=== PATIENT | female | born 1950 | race African-American/Black ===

== ENCOUNTER 2020-02-29 16:34 | Inpatient (IN) ==
[2020-02-29] MEDS ORDERED: LR 1000 ML IV 1,000 ML IV ONE ×2 (16:49→17:20)
[2020-02-29 17:18] LABS: ABG BASE EXCESS -0.5 mmol/L (-2.0-2.0); ABG HCO3 21.2 mmol/L (22-26)
--- NOTE | 2020-02-29 17:18 | DR.SOBA ---
HPI Time Seen Time Seen by Provider: 02/29/20 16:49 Primary Care Physician Primary Care Physician: margoth rogers HPI Comment HPI Comment: Cough, mild SHOB, fever at home x 3-4 days assoc w/appetite loss. Was at [facility] 4 days ago for 1 week constipation, was given stool softener and K+ replacement, has had daily bowel movements since. No chest pain, LOC, n/v, or any other associated symptom. Complaints Chief Complaint:: pt was brought to the er via family per patients fernando rodriguez. family stated she has been couging, running fever and short of breath. patient stated she has had problems having a bowel movement in the past Source History Provided: Patient Mode of Arrival Mode of Arrival: Wheelchair Timing Onset of Chief Complaint: 02/25/20 PMH PMH Past Medical History: Yes Past Medical History: Diabetes and Hypertension Past Surgical History: Yes Surgical History: Unknown Family History History of Family Medical Conditions: No Social History Does patient currently use any type of tobacco product: No Have you used tobacco products in the last 12 months: No Type of Tobacco Use: None Does any household member use tobacco: No Alcohol Use: None Do you use any recreational Drugs:: No Lives With: Family Lives Where: Home Infectious screening In the last 2 months have you had wt loss of >10#?: NO Have you had fever, night sweats or hemotysis?: No Have you traveled outside the country in the last 6 months?: No Isolation: Standard ROS Review of Systems Constitutional: See HPI Eyes: No Symptoms Reported ENTM: No Symptoms Reported Respiratoy: See HPI Cardiovascular: No Symptoms Reported Gastrointestinal/Abdominal: See HPI Genitourinary: No Symptoms Reported Neurological: No Symptoms Reported Musculoskeletal: No Symptoms Reported Integumentary: No Symptoms Reported Hematologic/Lymphatic: No Symptoms Reported Endocrine: No Symptoms Reported Psychiatric: No Symptoms Reported All Other Systems: Reviewed and Negative PE Vital Signs Vitals: Temperature 99.1 F Pulse Rate [Left] 101 Pulse Rate 111 Respiratory Rate 18 Blood Pressure [Left Arm] 137/71 Blood Pressure 154/76 O2 Sat by Pulse Oximetry 95 General Limitations: No Limitations General Appearance: Alert, In No Apparent Distress and Obese Head Head Exam: Normal Inspection Eyes Eye exam: Normal Appearance ENT ENT Exam: Normal Exam and Mucous Membranes Dry Neck Neck Exam: Normal Inspection Chest Chest Inspection: Normal Inspection and Symmetric Chest Wall Rise Respiratory Respiratory Exam: Normal Lung Sounds Bilat and Other (mild tachypnea) Respiratory Exam: Bilateral: Clear to Auscultation Cardiovascular Cardiovascular Exam: Regular Rate, Normal Rhythm and Tachycardia Abdominal Exam Abdominal Exam: Normal Inspection, Normal Bowel Sounds and Soft; negative Distention, Tenderness, Guarding, Rebound and Rigidity Extremities Extremities Exam: Normal Inspection Back Back Exam: Normal Inspection Neurologic Neurological Exam: Alert and Oriented X3 Psychiatric Psychiatric Exam: Normal Affect and Normal Mood Skin Skin Exam: Warm, Dry, Intact and Normal Color COURSE Treatment Treatment: ABG concerning for Type 1 respiratory failure. No recent travel or immobilization or hospitalization. CXR concerning for bibasilar infiltrates, which along with leukocytosis concerning for bacterial pneumonia. Covid test pending. Discussed case with Dr. Velasco admitted for IV abx, respiratory monitoring and support. Reevaluation 1st: Improved ROR Labs Reviewed Laboratory Results Reviewed?: Yes Result Diagrams: 02/29/20 17:50 02/29/20 17:50 Laboratory: WBC 18.0 X10^3/uL (3.6-10.0) H 02/29/20 17:50 RBC 5.07 X10^6/uL (3.5-5.4) 02/29/20 17:50 Hgb 10.7 g/dL (12.0-16.0) L 02/29/20 17:50 Hct 34.8 % (36.0-47.0) L 02/29/20 17:50 MCV 68.6 fL (80.0-100.0) L 02/29/20 17:50 MCH 21.0 pg (27.0-34.0) L 02/29/20 17:50 MCHC 30.6 g/dL (33.0-35.0) L 02/29/20 17:50 RDW 16.8 % (11.6-16.5) H 02/29/20 17:50 Plt Count 492 X10^3/uL (150.0-450.0) H 02/29/20 17:50 Plt Count Comment Increased (ADEQUATE) A 02/29/20 17:50 MPV 7.8 fL (7.4-11.0) 02/29/20 17:50 Neut % (Auto) 78.7 % (42.0-75.0) H 02/29/20 17:50 Lymph % (Auto) 13.0 % (21.0-51.0) L 02/29/20 17:50 Kleberg % (Auto) 7.0 % (0.0-13.0) 02/29/20 17:50 Eos % (Auto) 0.1 % (0.9-2.9) L 02/29/20 17:50 Baso % (Auto) 1.2 % (0.2-1.0) H 02/29/20 17:50 Neut # (Auto) 14.1 x10^3/uL (2.2-4.8) H 02/29/20 17:50 Lymph # (Auto) 2.3 X10^3/uL (1.3-2.9) 02/29/20 17:50 Kleberg # (Auto) 1.3 x10^3/uL (0.3-0.8) H 02/29/20 17:50 Eos # (Auto) 0.0 x10^3/uL (0.0-0.2) 02/29/20 17:50 Baso # (Auto) 0.2 X10^3/uL (0.0-0.1) H 02/29/20 17:50 Absolute Nucleated RBC 0.3 /100WBC 02/29/20 17:50 Plt Morphology Comment Normal (NORMAL) 02/29/20 17:50 RBC Morphology Abnormal (NORMAL) A 02/29/20 17:50 Hypochromasia 2+ A 02/29/20 17:50 Anisocytosis Slight A 02/29/20 17:50 Microcytosis 1+ A 02/29/20 17:50 Ovalocytes Present 02/29/20 17:50 Vicente Cells Present 02/29/20 17:50 Sample Site Rbra 02/29/20 17:08 ABG pH 7.520 (7.35-7.45) H 02/29/20 17:08 ABG pCO2 26.0 mmHg (35.0-45.0) L 02/29/20 17:08 ABG pO2 37.0 mmHg (80.0-100.0) L* 02/29/20 17:08 ABG HCO3 21.2 mmol/L (22-26) L 02/29/20 17:08 ABG O2 Saturation 78.0 % (90-100) L* 02/29/20 17:08 ABG Base Excess -0.5 mmol/L (-2.0-2.0) 02/29/20 17:08 Yonatan Test N/a 02/29/20 17:08 A-a Gradient 80.0 mmHg 02/29/20 17:08 FiO2 21.0 02/29/20 17:08 Blood Gas Comments Pt trudi well elj cdn 02/29/20 17:08 Sodium 126 mmol/L (136-145) L 02/29/20 17:50 Corrected Sodium 135 mmol/L (136-145) L 02/29/20 17:50 Potassium 3.9 mmol/L (3.5-5.1) 02/29/20 17:50 Chloride 90 mmol/L (98-107) L 02/29/20 17:50 Carbon Dioxide 22.7 mmol/L (21-32) 02/29/20 17:50 BUN 32 mg/dL (7-18) H 02/29/20 17:50 Creatinine 1.42 mg/dL (0.55-1.02) H 02/29/20 17:50 Est GFR (MDRD) Af Amer 47 (>60) L 02/29/20 17:50 Est GFR (MDRD) Non-Af 39 (>60) L 02/29/20 17:50 Glucose 487 mg/dL (65-99) H 02/29/20 17:50 Calcium 8.4 mg/dL (8.5-10.1) L 02/29/20 17:50 Corrected Calcium 9.5 mg/dL (8.5-10.1) 02/29/20 17:50 Magnesium 2.1 mg/dL (1.7-2.9) 02/29/20 17:50 Total Bilirubin 0.80 mg/dL (0.2-1.0) 02/29/20 17:50 AST 34 Units/L (15-37) 02/29/20 17:50 ALT 14 Units/L (12-78) 02/29/20 17:50 Alkaline Phosphatase 112 Units/L (46-116) 02/29/20 17:50 Creatine Kinase 101 Units/L (26-192) 02/29/20 17:50 CK-MB (CK-2) 1.2 ng/mL (0-4.0) 02/29/20 17:50 CK/CKMB % Calc 1.2 % (<4) 02/29/20 17:50 Troponin I 0.05 ng/mL (0-1.5) 02/29/20 17:50 Total Protein 7.7 g/dL (6.4-8.2) 02/29/20 17:50 Albumin 2.6 g/dL (3.4-5.0) L 02/29/20 17:50 Globulin 5.1 g/dL (2.5-4.5) H 02/29/20 17:50 Albumin/Globulin Ratio 0.5 Ratio (1.1-2.1) L 02/29/20 17:50 Influenza Type A Ag Negative-presumptive (NEGATIVE) 02/29/20 17:18 Influenza Type B Ag Negative-presumptive (NEGATIVE) 02/29/20 17:18 S. pyogenes (TEM-PCR) Not detected (NOT DETECT) 02/29/20 17:18 Miscellaneous Test Cancelled 02/29/20 17:18 XRAY XRAY Interpreted by: Radiologist and Self X-ray Results: Bibasilar PNM EKG Rate: 106 Alden: Normal Rhythm: NSR Block: None Hypertrophy: LAE ST: Normal Opioid Opioid Risk Tool Total: 0 Total Score Risk Category: Low Risk Copyright: Prakash NORRIS predicting aberrant behaviors Diagnosis Discharge Problem: Community acquired bilateral lower lobe pneumonia, Acute type 1 respiratory failure Instructions Forms: Excuse From Work Precautions for COVID19 Patient Portal Social Distancing
--- NOTE | 2020-02-29 17:49 | RAD ---
HISTORYCOUGH, FEVERSTUDYCHEST, 1 VIEWCOMPARISONNone availableFINDINGSThe trachea is midline. The cardiac silhouette is unremarkable . The lungs demonstrate hazy opacities in the lower lobes bilaterally which may be due pneumonia the bony thorax is unremarkable.IMPRESSIONHazy bibasilar opacities suggesting underlying pneumonia. Follow-up two view chest would be of benefit.Electronically signed by: ELAYNE PERDUE (Feb 29, 2020 17:48:12)
[2020-02-29 18:00] LABS: BASOPHILS # (AUTO) 0.2 X10^3/uL (0.0-0.1); BASOPHILS % (AUTO) 1.2 % (0.2-1.0); EOSINOPHILS % (AUTO) 0.1 % (0.9-2.9); HEMATOCRIT 34.8 % (36.0-47.0); HEMOGLOBIN 10.7 g/dL (12.0-16.0); LYMPHOCYTES # (AUTO) 2.3 X10^3/uL (1.3-2.9); MEAN CORPUSCULAR HGB CONC 30.6 g/dL (33.0-35.0); MEAN CORPUSCULAR VOLUME 68.6 fL (80.0-100.0); MEAN PLATELET VOLUME 7.8 fL (7.4-11.0); MONOCYTES # (AUTO) 1.3 x10^3/uL (0.3-0.8); NEUTROPHILS # (AUTO) 14.1 x10^3/uL (2.2-4.8); NEUTROPHILS % (AUTO) 78.7 % (42.0-75.0); PLATELET COUNT 492 X10^3/uL (150.0-450.0); RED BLOOD COUNT 5.07 X10^6/uL (3.5-5.4); RED CELL DISTRIBUTION WIDTH 16.8 % (11.6-16.5)
[2020-02-29 18:11] LABS: CALCIUM 8.4 mg/dL (8.5-10.1); CARBON DIOXIDE 22.7 mmol/L (21-32); CREATININE 1.42 mg/dL (0.55-1.02)
[2020-02-29 18:15] LABS: ALBUMIN 2.6 g/dL (3.4-5.0); COR CA(FOR HYPOALB) 9.5 mg/dL (8.5-10.1); MAGNESIUM 2.1 mg/dL (1.7-2.9); TOTAL PROTEIN 7.7 g/dL (6.4-8.2)
[2020-02-29 18:27] LABS: HYPOCHROMASIA 2+; MICROCYTOSIS 1+; PLATELET MORPHOLOGY COMMENT NORMAL (NORMAL)
[2020-02-29 18:28] LABS: CKMB % 1.2 % (<4); CREATINE KINASE MB 1.2 ng/mL (0-4.0); TROPONIN I 0.05 ng/mL (0-1.5)
[2020-02-29 18:31] LABS: BURR CELLS PRESENT; OVALOCYTES PRESENT
[2020-02-29 18:32] LABS: ANISOCYTOSIS SLIGHT
[2020-02-29] MEDS ORDERED: VIBRAMYCIN PO ONE (19:35)
[2020-02-29] MEDS ORDERED: ROCEPHIN VIAL 2 GRAMS ONE (19:36)
[2020-02-29] MEDS ORDERED: NS 100 ML IV + SPIKE MINIBAG* 100 ML IV ONE (19:36)
[2020-02-29] MEDS: ROCEPHIN VIAL 2 GRAMS 2 G in NS 100 ML IV + SPIKE MINIBAG* 100 ML IV SCH (19:45)
[2020-02-29] MEDS: VIBRAMYCIN PO SCH (19:45)
[2020-02-29] MEDS: LIPITOR TAB 40 MG PO SCH (23:49)
[2020-02-29] MEDS: HumuLIN R SC PRN (23:50)
[2020-03-01 02:38] LABS: BILIRUBIN,URINE NEGATIVE (NEGATIVE); BLOOD/HEMOGLOBIN,URINE NEGATIVE (NEGATIVE); GLUCOSE, URINE 4+ (NEGATIVE); KETONES,URINE 2+ (NEGATIVE); LEUKOCYTE ESTERASE ,URINE NEGATIVE (NEGATIVE); NITRITES,URINE NEGATIVE (NEGATIVE); PROTEIN,URINE 3+ (NEGATIVE); UROBILINOGEN,URINE 1+ (NORMAL)
[2020-03-01 02:42] LABS: APPEARANCE,URINE CLEAR (CLEAR); COLOR,URINE YELLOW (YELLOW)
[2020-03-01 02:43] LABS: BACTERIA,URINE NEGATIVE /HPF (NEGATIVE); RBC,URINE NONE SEEN /HPF (0-3); SQUAMOUS EPITHELIAL CELL,UR RARE /HPF (NEGATIVE)
[2020-03-01 05:08] LABS: ABG ALLEN TEST POS; ABG HCO3 30.4 mmol/L (22-26)
[2020-03-01 05:31] LABS: BASOPHILS # (AUTO) 0.1 X10^3/uL (0.0-0.1); BASOPHILS % (AUTO) 0.6 % (0.2-1.0); EOSINOPHILS # (AUTO) 0.1 x10^3/uL (0.0-0.2); EOSINOPHILS % (AUTO) 0.4 % (0.9-2.9); HEMATOCRIT 31.3 % (36.0-47.0); HEMOGLOBIN 9.7 g/dL (12.0-16.0); LYMPHOCYTES # (AUTO) 2.5 X10^3/uL (1.3-2.9); LYMPHOCYTES % (AUTO) 16.3 % (21.0-51.0); MEAN CORPUSCULAR HEMOGLOBIN 20.9 pg (27.0-34.0); MEAN CORPUSCULAR VOLUME 67.4 fL (80.0-100.0); MEAN PLATELET VOLUME 7.4 fL (7.4-11.0); MONOCYTES # (AUTO) 1.2 x10^3/uL (0.3-0.8); MONOCYTES % (AUTO) 8.2 % (0.0-13.0); NEUTROPHILS # (AUTO) 11.3 x10^3/uL (2.2-4.8); NEUTROPHILS % (AUTO) 74.5 % (42.0-75.0); PLATELET COUNT 401 X10^3/uL (150.0-450.0); RED BLOOD COUNT 4.64 X10^6/uL (3.5-5.4); RED CELL DISTRIBUTION WIDTH 16.3 % (11.6-16.5); WHITE BLOOD COUNT 15.2 X10^3/uL (3.6-10.0)
[2020-03-01 05:50] LABS: PLATELET MORPHOLOGY COMMENT NORMAL (NORMAL)
[2020-03-01 05:51] LABS: BURR CELLS PRESENT; HYPOCHROMASIA 2+; MICROCYTOSIS 1+; OVALOCYTES PRESENT
[2020-03-01 05:55] LABS: ALANINE AMINOTRANSFERASE 10 Units/L (12-78); ALBUMIN 2.2 g/dL (3.4-5.0); ALKALINE PHOSPHATASE 96 Units/L (46-116); ASPARTATE AMINO TRANSFERASE 30 Units/L (15-37); BLOOD UREA NITROGEN 18 mg/dL (7-18); CARBON DIOXIDE 26.9 mmol/L (21-32); CHLORIDE 93 mmol/L (98-107); COR CA(FOR HYPOALB) 9.4 mg/dL (8.5-10.1); COR NA(FOR HYPERGLY) 136 mmol/L (136-145); CREATININE 1.06 mg/dL (0.55-1.02); SODIUM 130 mmol/L (136-145); eGFR NON BLACK RACES 55 (>60)
[2020-03-01] MEDS: HumuLIN R SC PRN ×4 (06:04→21:35)
[2020-03-01] MEDS ORDERED: REMDESIVIR (INVESTIGATIONAL DRUG GS-5734) IV ONE (08:12)
[2020-03-01] MEDS ORDERED: ASCORBIC ACID INJ MULTI-DOSE VIAL IM SCH (08:15)
[2020-03-01] MEDS ORDERED: LOVENOX INJ 40 MG SYR SC SCH (09:00)
[2020-03-01] MEDS ORDERED: VITAMIN A PO SCH (09:00)
[2020-03-01] MEDS ORDERED: VITAMIN D (1.25MG) PO SCH (09:00)
[2020-03-01] MEDS: ZINC SULFATE PO SCH ×2 (09:21→21:30)
[2020-03-01] MEDS: ASPIRIN 81 MG CHEWTAB PO SCH (09:21)
[2020-03-01] MEDS: THIAMINE HCL INJ IM SCH ×2 (09:22→21:34)
[2020-03-01] MEDS: NORVASC TAB 10 MG PO SCH (09:22)
[2020-03-01] MEDS: VIBRAMYCIN PO SCH ×2 (09:23→21:30)
[2020-03-01] MEDS: LOVENOX INJ 30 MG SYR SC SCH ×2 (09:23→21:32)
[2020-03-01] MEDS: NS 1000 ML 1,000 ML IV SCH (09:24)
[2020-03-01] MEDS ORDERED: REMDESIVIR (INVESTIGATIONAL DRUG GS-5734) 200 MG in NS 250 ML IV 250 ML IV ONE (09:30)
[2020-03-01] MEDS: GLUCOPHAGE XR 24-HR PO SCH ×2 (09:51→21:30)
[2020-03-01] MEDS: DECADRON TAB PO SCH (09:52)
[2020-03-01] MEDS: ACTOS PO SCH (10:01)
[2020-03-01] MEDS ORDERED: TUSSIONEX PENNKINETIC SUSP ONE (11:48)
[2020-03-01] MEDS ORDERED: NS 100 ML IV 100 ML IV ONE ×3 (11:53→20:09)
[2020-03-01] MEDS: NS 100 ML IV 100 ML with ASCORBIC ACID INJ MULTI-DOSE VIAL 1,500 MG IV SCH ×6 (11:54→23:20)
[2020-03-01 12:36] VITALS: BMI 48.0
[2020-03-01] MEDS: K-DUR TAB 20 MEQ PO SCH (16:44)
[2020-03-01] MEDS ORDERED: XANAX PO ONE (18:25)
[2020-03-01] MEDS: ROCEPHIN VIAL 2 GRAMS 2 G in NS 100 ML IV + SPIKE MINIBAG* 100 ML IV SCH (21:28)
[2020-03-01] MEDS: LIPITOR TAB 40 MG PO SCH (21:30)
[2020-03-02] MEDS ORDERED: NS 100 ML IV 100 ML IV ONE ×4 (01:52→20:16)
[2020-03-02] MEDS: NS 100 ML IV 100 ML with ASCORBIC ACID INJ MULTI-DOSE VIAL 1,500 MG IV SCH ×8 (02:00→20:20)
[2020-03-02 05:25] LABS: ALANINE AMINOTRANSFERASE 11 Units/L (12-78); ALBUMIN 2.3 g/dL (3.4-5.0); ALKALINE PHOSPHATASE 93 Units/L (46-116); ASPARTATE AMINO TRANSFERASE 27 Units/L (15-37); BLOOD UREA NITROGEN 16 mg/dL (7-18); CALCIUM 7.9 mg/dL (8.5-10.1); CARBON DIOXIDE 23.8 mmol/L (21-32); CHLORIDE 96 mmol/L (98-107); COR CA(FOR HYPOALB) 9.3 mg/dL (8.5-10.1); COR NA(FOR HYPERGLY) 137 mmol/L (136-145); CREATININE 0.91 mg/dL (0.55-1.02); SODIUM 131 mmol/L (136-145); TOTAL PROTEIN 7.4 g/dL (6.4-8.2); eGFR NON BLACK RACES > 60 (>60)
[2020-03-02 05:27] LABS: BASOPHILS % (AUTO) 0.4 % (0.2-1.0); HEMATOCRIT 31.3 % (36.0-47.0); HEMOGLOBIN 9.7 g/dL (12.0-16.0); LYMPHOCYTES # (AUTO) 1.5 X10^3/uL (1.3-2.9); LYMPHOCYTES % (AUTO) 13.4 % (21.0-51.0); MEAN CORPUSCULAR HEMOGLOBIN 21.1 pg (27.0-34.0); MEAN CORPUSCULAR HGB CONC 30.9 g/dL (33.0-35.0); MEAN CORPUSCULAR VOLUME 68.2 fL (80.0-100.0); MONOCYTES # (AUTO) 1.4 x10^3/uL (0.3-0.8); MONOCYTES % (AUTO) 12.2 % (0.0-13.0); NEUTROPHILS # (AUTO) 8.2 x10^3/uL (2.2-4.8); PLATELET COUNT 385 X10^3/uL (150.0-450.0); RED BLOOD COUNT 4.58 X10^6/uL (3.5-5.4); RED CELL DISTRIBUTION WIDTH 16.7 % (11.6-16.5); WHITE BLOOD COUNT 11.1 X10^3/uL (3.6-10.0)
[2020-03-02 05:54] LABS: HYPOCHROMASIA 2+; PLATELET MORPHOLOGY COMMENT NORMAL (NORMAL)
[2020-03-02 05:55] LABS: ANISOCYTOSIS SLIGHT; BURR CELLS PRESENT; MICROCYTOSIS 1+; OVALOCYTES PRESENT
[2020-03-02] MEDS: HumuLIN R SC PRN ×4 (05:59→21:51)
[2020-03-02] MEDS ORDERED: REMDESIVIR (INVESTIGATIONAL DRUG GS-5734) 100 MG in NS 250 ML IV 250 ML IV SCH (08:30)
[2020-03-02] MEDS: GLUCOPHAGE XR 24-HR PO SCH ×2 (08:55→20:02)
[2020-03-02] MEDS: ZINC SULFATE PO SCH ×2 (08:56→20:09)
[2020-03-02] MEDS: VIBRAMYCIN PO SCH ×2 (08:56→20:08)
[2020-03-02] MEDS: ACTOS PO SCH (08:56)
[2020-03-02] MEDS: K-DUR TAB 20 MEQ PO SCH (08:57)
[2020-03-02] MEDS: DECADRON TAB PO SCH (08:57)
[2020-03-02] MEDS: THIAMINE HCL INJ IM SCH ×2 (08:59→20:09)
[2020-03-02] MEDS: NORVASC TAB 10 MG PO SCH (09:00)
[2020-03-02] MEDS: ASPIRIN 81 MG CHEWTAB PO SCH (09:00)
[2020-03-02] MEDS: NS 1000 ML 1,000 ML IV SCH (09:00)
[2020-03-02] MEDS: REMDESIVIR (INVESTIGATIONAL DRUG GS-5734) 100 MG in NS 250 ML IV 250 ML IV SCH (09:08)
[2020-03-02] MEDS: LOVENOX INJ 30 MG SYR SC SCH ×2 (10:06→20:03)
[2020-03-02] MEDS: LIPITOR TAB 40 MG PO SCH (20:03)
[2020-03-02] MEDS: ROCEPHIN VIAL 2 GRAMS 2 G in NS 100 ML IV + SPIKE MINIBAG* 100 ML IV SCH (20:11)
[2020-03-03] MEDS ORDERED: NS 100 ML IV 100 ML IV ONE ×4 (02:56→20:11)
[2020-03-03] MEDS: NS 100 ML IV 100 ML with ASCORBIC ACID INJ MULTI-DOSE VIAL 1,500 MG IV SCH ×8 (03:03→20:38)
[2020-03-03 05:16] LABS: BASOPHILS % (AUTO) 0.3 % (0.2-1.0); HEMATOCRIT 31.5 % (36.0-47.0); HEMOGLOBIN 9.8 g/dL (12.0-16.0); LYMPHOCYTES # (AUTO) 1.2 X10^3/uL (1.3-2.9); LYMPHOCYTES % (AUTO) 11.2 % (21.0-51.0); MEAN CORPUSCULAR HEMOGLOBIN 21.4 pg (27.0-34.0); MEAN CORPUSCULAR VOLUME 68.8 fL (80.0-100.0); MONOCYTES # (AUTO) 1.5 x10^3/uL (0.3-0.8); MONOCYTES % (AUTO) 13.5 % (0.0-13.0); NEUTROPHILS # (AUTO) 8.2 x10^3/uL (2.2-4.8); PLATELET COUNT 434 X10^3/uL (150.0-450.0); RED BLOOD COUNT 4.58 X10^6/uL (3.5-5.4); RED CELL DISTRIBUTION WIDTH 16.5 % (11.6-16.5); WHITE BLOOD COUNT 10.9 X10^3/uL (3.6-10.0)
[2020-03-03 05:34] LABS: ALANINE AMINOTRANSFERASE 10 Units/L (12-78); ALBUMIN 2.4 g/dL (3.4-5.0); ALKALINE PHOSPHATASE 99 Units/L (46-116); ASPARTATE AMINO TRANSFERASE 22 Units/L (15-37); BLOOD UREA NITROGEN 20 mg/dL (7-18); CALCIUM 8.1 mg/dL (8.5-10.1); CARBON DIOXIDE 23.5 mmol/L (21-32); CHLORIDE 98 mmol/L (98-107); COR CA(FOR HYPOALB) 9.4 mg/dL (8.5-10.1); COR NA(FOR HYPERGLY) 137 mmol/L (136-145); CREATININE 0.87 mg/dL (0.55-1.02); SODIUM 132 mmol/L (136-145); TOTAL PROTEIN 7.5 g/dL (6.4-8.2); eGFR NON BLACK RACES > 60 (>60)
[2020-03-03 05:40] LABS: BURR CELLS PRESENT; HYPOCHROMASIA 2+; MICROCYTOSIS 1+; OVALOCYTES PRESENT; PLATELET MORPHOLOGY COMMENT NORMAL (NORMAL)
[2020-03-03] MEDS: HumuLIN R SC PRN ×4 (06:27→21:21)
[2020-03-03] MEDS: GLUCOPHAGE XR 24-HR PO SCH ×2 (08:52→20:39)
[2020-03-03] MEDS: ZINC SULFATE PO SCH ×2 (08:52→20:40)
[2020-03-03] MEDS: VIBRAMYCIN PO SCH ×2 (08:53→20:39)
[2020-03-03] MEDS: NORVASC TAB 10 MG PO SCH (08:53)
[2020-03-03] MEDS: K-DUR TAB 20 MEQ PO SCH (08:53)
[2020-03-03] MEDS: DECADRON TAB PO SCH (08:54)
[2020-03-03] MEDS: ACTOS PO SCH (08:54)
[2020-03-03] MEDS: THIAMINE HCL INJ IM SCH ×2 (08:56→20:41)
[2020-03-03] MEDS: REMDESIVIR (INVESTIGATIONAL DRUG GS-5734) 100 MG in NS 250 ML IV 250 ML IV SCH (09:02)
[2020-03-03] MEDS: VITAMIN A PO SCH (09:03)
[2020-03-03] MEDS: VITAMIN D3 25 mcg (1,000 UNITS) PO SCH (09:04)
[2020-03-03] MEDS: LOVENOX INJ 30 MG SYR SC SCH ×2 (09:04→20:40)
[2020-03-03] MEDS: NS 1000 ML 1,000 ML IV SCH (09:04)
[2020-03-03] MEDS: ASPIRIN 81 MG CHEWTAB PO SCH (09:07)
[2020-03-03] MEDS: LIPITOR TAB 40 MG PO SCH (20:40)
[2020-03-03] MEDS: ROCEPHIN VIAL 2 GRAMS 2 G in NS 100 ML IV + SPIKE MINIBAG* 100 ML IV SCH (20:41)
[2020-03-03] MEDS: MIRALAX POWDER (1 DOSE 17 G) PO SCH (23:01)
[2020-03-03] MEDS: COLACE CAP 100 MG PO SCH (23:27)
[2020-03-04] MEDS ORDERED: NS 100 ML IV 100 ML IV ONE ×4 (02:49→20:35)
[2020-03-04] MEDS: NS 100 ML IV 100 ML with ASCORBIC ACID INJ MULTI-DOSE VIAL 1,500 MG IV SCH ×8 (03:10→21:00)
[2020-03-04 05:27] LABS: BASOPHILS % (AUTO) 0.4 % (0.2-1.0); HEMATOCRIT 29.3 % (36.0-47.0); HEMOGLOBIN 9.1 g/dL (12.0-16.0); LYMPHOCYTES # (AUTO) 1.8 X10^3/uL (1.3-2.9); LYMPHOCYTES % (AUTO) 18.4 % (21.0-51.0); MEAN CORPUSCULAR HEMOGLOBIN 21.2 pg (27.0-34.0); MEAN CORPUSCULAR HGB CONC 31.1 g/dL (33.0-35.0); MEAN CORPUSCULAR VOLUME 68.2 fL (80.0-100.0); MEAN PLATELET VOLUME 8.3 fL (7.4-11.0); MONOCYTES # (AUTO) 1.1 x10^3/uL (0.3-0.8); MONOCYTES % (AUTO) 10.9 % (0.0-13.0); NEUTROPHILS % (AUTO) 70.3 % (42.0-75.0); PLATELET COUNT 467 X10^3/uL (150.0-450.0); RED BLOOD COUNT 4.29 X10^6/uL (3.5-5.4); RED CELL DISTRIBUTION WIDTH 16.8 % (11.6-16.5); WHITE BLOOD COUNT 9.9 X10^3/uL (3.6-10.0)
[2020-03-04 05:45] LABS: ALANINE AMINOTRANSFERASE 10 Units/L (12-78); ALBUMIN 2.3 g/dL (3.4-5.0); ALKALINE PHOSPHATASE 92 Units/L (46-116); ASPARTATE AMINO TRANSFERASE 20 Units/L (15-37); BLOOD UREA NITROGEN 20 mg/dL (7-18); CALCIUM 8.1 mg/dL (8.5-10.1); CARBON DIOXIDE 22.4 mmol/L (21-32); CHLORIDE 100 mmol/L (98-107); COR CA(FOR HYPOALB) 9.5 mg/dL (8.5-10.1); COR NA(FOR HYPERGLY) 136 mmol/L (136-145); CREATININE 0.81 mg/dL (0.55-1.02); SODIUM 133 mmol/L (136-145); TOTAL PROTEIN 6.9 g/dL (6.4-8.2); eGFR NON BLACK RACES > 60 (>60)
[2020-03-04 05:51] LABS: HYPOCHROMASIA 1+; MICROCYTOSIS 1+; OVALOCYTES PRESENT; PLATELET MORPHOLOGY COMMENT NORMAL (NORMAL)
[2020-03-04 05:52] LABS: BURR CELLS PRESENT
[2020-03-04] MEDS: HumuLIN R SC PRN ×2 (06:17→21:00)
[2020-03-04] MEDS: ASPIRIN 81 MG CHEWTAB PO SCH (09:35)
[2020-03-04] MEDS: ACTOS PO SCH (09:35)
[2020-03-04] MEDS: DECADRON TAB PO SCH (09:36)
[2020-03-04] MEDS: GLUCOPHAGE XR 24-HR PO SCH ×2 (09:36→21:00)
[2020-03-04] MEDS: K-DUR TAB 20 MEQ PO SCH (09:37)
[2020-03-04] MEDS: LOVENOX INJ 30 MG SYR SC SCH ×2 (09:37→21:00)
[2020-03-04] MEDS: NORVASC TAB 10 MG PO SCH (09:37)
[2020-03-04] MEDS: REMDESIVIR (INVESTIGATIONAL DRUG GS-5734) 100 MG in NS 250 ML IV 250 ML IV SCH (09:38)
[2020-03-04] MEDS: PROTONIX TAB 40 MG PO SCH (09:38)
[2020-03-04] MEDS: THIAMINE HCL INJ IM SCH ×2 (09:38→21:00)
[2020-03-04] MEDS: VIBRAMYCIN PO SCH ×2 (09:39→21:00)
[2020-03-04] MEDS: VITAMIN A PO SCH (09:39)
[2020-03-04] MEDS: NS 1000 ML 1,000 ML IV SCH (09:40)
[2020-03-04] MEDS: ZINC SULFATE PO SCH ×2 (09:40→21:00)
[2020-03-04] MEDS: VITAMIN D3 25 mcg (1,000 UNITS) PO SCH (09:45)
[2020-03-04] MEDS: ROCEPHIN VIAL 2 GRAMS 2 G in NS 100 ML IV + SPIKE MINIBAG* 100 ML IV SCH (21:00)
[2020-03-04] MEDS: LIPITOR TAB 40 MG PO SCH (21:00)
[2020-03-04] MEDS: COLACE CAP 100 MG PO SCH (21:00)
[2020-03-04] MEDS: MIRALAX POWDER (1 DOSE 17 G) PO SCH (21:00)
[2020-03-05] MEDS ORDERED: NS 100 ML IV 100 ML IV ONE ×4 (02:49→19:21)
[2020-03-05] MEDS: NS 100 ML IV 100 ML with ASCORBIC ACID INJ MULTI-DOSE VIAL 1,500 MG IV SCH ×8 (03:00→20:09)
[2020-03-05] MEDS: HumuLIN R SC PRN ×4 (05:53→20:10)
--- NOTE | 2020-03-05 06:03 | RAD ---
HISTORYCOVIDSTUDYPortable AP [id number] normal heart size. There are minimal persistent perihilar/ lower lobe infiltrates without evidence for segmental or lobar consolidation. No pleural fluid is see n.IMPRESSIONStable minimal bilateral infiltrates consistent with inflammatory process. There is sligh t apparent improvement in aeration of the lungs since prior.Electronically signed by: CECILE HUGHES (Mar 05, 2020 06:01:48)
[2020-03-05] MEDS: ACTOS PO SCH (08:19)
[2020-03-05] MEDS: DECADRON TAB PO SCH (08:20)
[2020-03-05] MEDS: ASPIRIN 81 MG CHEWTAB PO SCH (08:20)
[2020-03-05] MEDS: K-DUR TAB 20 MEQ PO SCH (08:21)
[2020-03-05] MEDS: LOVENOX INJ 30 MG SYR SC SCH (08:21)
[2020-03-05] MEDS: PROTONIX TAB 40 MG PO SCH (08:22)
[2020-03-05] MEDS: VIBRAMYCIN PO SCH ×2 (08:23→20:09)
[2020-03-05] MEDS: VITAMIN A PO SCH (08:23)
[2020-03-05] MEDS: ZINC SULFATE PO SCH ×2 (08:24→20:09)
[2020-03-05] MEDS: VITAMIN D3 25 mcg (1,000 UNITS) PO SCH (08:24)
[2020-03-05 08:33] LABS: BASOPHILS # (AUTO) 0.1 X10^3/uL (0.0-0.1); BASOPHILS % (AUTO) 0.7 % (0.2-1.0); EOSINOPHILS % (AUTO) 0.3 % (0.9-2.9); HEMATOCRIT 31.5 % (36.0-47.0); HEMOGLOBIN 9.7 g/dL (12.0-16.0); LYMPHOCYTES # (AUTO) 2.4 X10^3/uL (1.3-2.9); LYMPHOCYTES % (AUTO) 24.5 % (21.0-51.0); MEAN CORPUSCULAR HGB CONC 30.8 g/dL (33.0-35.0); MEAN CORPUSCULAR VOLUME 68.1 fL (80.0-100.0); MEAN PLATELET VOLUME 7.7 fL (7.4-11.0); MONOCYTES # (AUTO) 1.1 x10^3/uL (0.3-0.8); MONOCYTES % (AUTO) 11.1 % (0.0-13.0); NEUTROPHILS # (AUTO) 6.1 x10^3/uL (2.2-4.8); NEUTROPHILS % (AUTO) 63.4 % (42.0-75.0); PLATELET COUNT 531 X10^3/uL (150.0-450.0); RED BLOOD COUNT 4.62 X10^6/uL (3.5-5.4); RED CELL DISTRIBUTION WIDTH 16.9 % (11.6-16.5); WHITE BLOOD COUNT 9.6 X10^3/uL (3.6-10.0)
[2020-03-05 08:44] LABS: ALANINE AMINOTRANSFERASE 16 Units/L (12-78); ALBUMIN 2.7 g/dL (3.4-5.0); ALKALINE PHOSPHATASE 104 Units/L (46-116); ASPARTATE AMINO TRANSFERASE 20 Units/L (15-37); BLOOD UREA NITROGEN 21 mg/dL (7-18); CALCIUM 8.4 mg/dL (8.5-10.1); CARBON DIOXIDE 22.9 mmol/L (21-32); CHLORIDE 97 mmol/L (98-107); COR CA(FOR HYPOALB) 9.4 mg/dL (8.5-10.1); COR NA(FOR HYPERGLY) 135 mmol/L (136-145); CREATININE 0.84 mg/dL (0.55-1.02); SODIUM 131 mmol/L (136-145); eGFR NON BLACK RACES > 60 (>60)
[2020-03-05 09:09] LABS: HYPOCHROMASIA 2+; MICROCYTOSIS 1+; PLATELET MORPHOLOGY COMMENT NORMAL (NORMAL)
[2020-03-05 09:10] LABS: BURR CELLS PRESENT; OVALOCYTES PRESENT
[2020-03-05] MEDS: GLUCOPHAGE XR 24-HR PO SCH ×2 (09:52→20:08)
[2020-03-05] MEDS: NORVASC TAB 10 MG PO SCH (11:50)
[2020-03-05] MEDS: NS 1000 ML 1,000 ML IV SCH (11:52)
[2020-03-05] MEDS: COLACE CAP 100 MG PO SCH (20:08)
[2020-03-05] MEDS: MIRALAX POWDER (1 DOSE 17 G) PO SCH (20:08)
[2020-03-06] MEDS ORDERED: NS 100 ML IV 100 ML IV ONE ×2 (02:11→10:27)
[2020-03-06] MEDS: NS 100 ML IV 100 ML with ASCORBIC ACID INJ MULTI-DOSE VIAL 1,500 MG IV SCH ×4 (02:33→10:00)
[2020-03-06] MEDS: ASPIRIN 81 MG CHEWTAB PO SCH (09:54)
[2020-03-06] MEDS: ACTOS PO SCH (09:54)
[2020-03-06] MEDS: GLUCOPHAGE XR 24-HR PO SCH ×2 (09:55→20:31)
[2020-03-06] MEDS: K-DUR TAB 20 MEQ PO SCH (09:55)
[2020-03-06] MEDS: LOVENOX INJ 30 MG SYR SC SCH (09:55)
[2020-03-06] MEDS: NORVASC TAB 10 MG PO SCH (09:56)
[2020-03-06] MEDS: VIBRAMYCIN PO SCH ×2 (09:57→20:31)
[2020-03-06] MEDS: VITAMIN A PO SCH (09:57)
[2020-03-06] MEDS: VITAMIN D3 25 mcg (1,000 UNITS) PO SCH (09:58)
[2020-03-06] MEDS: ZINC SULFATE PO SCH ×2 (09:58→20:31)
[2020-03-06] MEDS: PROTONIX TAB 40 MG PO SCH (10:00)
[2020-03-06] MEDS: HumuLIN R SC PRN ×2 (13:20→17:34)
[2020-03-06 13:41] LABS: BASOPHILS # (AUTO) 0.1 X10^3/uL (0.0-0.1); BASOPHILS % (AUTO) 0.9 % (0.2-1.0); EOSINOPHILS # (AUTO) 0.1 x10^3/uL (0.0-0.2); HEMATOCRIT 32.1 % (36.0-47.0); HEMOGLOBIN 9.9 g/dL (12.0-16.0); LYMPHOCYTES # (AUTO) 3.7 X10^3/uL (1.3-2.9); LYMPHOCYTES % (AUTO) 34.4 % (21.0-51.0); MEAN CORPUSCULAR HGB CONC 30.8 g/dL (33.0-35.0); MEAN CORPUSCULAR VOLUME 68.1 fL (80.0-100.0); MEAN PLATELET VOLUME 7.9 fL (7.4-11.0); MONOCYTES # (AUTO) 1.2 x10^3/uL (0.3-0.8); MONOCYTES % (AUTO) 10.9 % (0.0-13.0); NEUTROPHILS # (AUTO) 5.6 x10^3/uL (2.2-4.8); NEUTROPHILS % (AUTO) 52.8 % (42.0-75.0); PLATELET COUNT 553 X10^3/uL (150.0-450.0); RED BLOOD COUNT 4.71 X10^6/uL (3.5-5.4); RED CELL DISTRIBUTION WIDTH 16.6 % (11.6-16.5); WHITE BLOOD COUNT 10.7 X10^3/uL (3.6-10.0)
[2020-03-06 13:50] LABS: HYPOCHROMASIA 2+; MICROCYTOSIS 1+; PLATELET MORPHOLOGY COMMENT NORMAL (NORMAL)
[2020-03-06 13:51] LABS: ALANINE AMINOTRANSFERASE 18 Units/L (12-78); ALBUMIN 2.6 g/dL (3.4-5.0); ALKALINE PHOSPHATASE 97 Units/L (46-116); ASPARTATE AMINO TRANSFERASE 41 Units/L (15-37); BLOOD UREA NITROGEN 21 mg/dL (7-18); BURR CELLS PRESENT; CALCIUM 8.9 mg/dL (8.5-10.1); CARBON DIOXIDE 21.8 mmol/L (21-32); CHLORIDE 100 mmol/L (98-107); COR NA(FOR HYPERGLY) 136 mmol/L (136-145); CREATININE 0.89 mg/dL (0.55-1.02); OVALOCYTES PRESENT; SODIUM 134 mmol/L (136-145); TOTAL PROTEIN 7.1 g/dL (6.4-8.2); eGFR NON BLACK RACES > 60 (>60)
[2020-03-06] MEDS: COLACE CAP 100 MG PO SCH (20:31)
[2020-03-06] MEDS: MIRALAX POWDER (1 DOSE 17 G) PO SCH (20:32)
[2020-03-07 05:21] LABS: BASOPHILS # (AUTO) 0.1 X10^3/uL (0.0-0.1); BASOPHILS % (AUTO) 0.9 % (0.2-1.0); EOSINOPHILS # (AUTO) 0.2 x10^3/uL (0.0-0.2); EOSINOPHILS % (AUTO) 2.9 % (0.9-2.9); HEMATOCRIT 29.7 % (36.0-47.0); HEMOGLOBIN 9.3 g/dL (12.0-16.0); LYMPHOCYTES # (AUTO) 3.5 X10^3/uL (1.3-2.9); MEAN CORPUSCULAR HEMOGLOBIN 21.3 pg (27.0-34.0); MEAN CORPUSCULAR HGB CONC 31.4 g/dL (33.0-35.0); MEAN PLATELET VOLUME 7.9 fL (7.4-11.0); MONOCYTES # (AUTO) 0.9 x10^3/uL (0.3-0.8); MONOCYTES % (AUTO) 10.2 % (0.0-13.0); NEUTROPHILS # (AUTO) 3.8 x10^3/uL (2.2-4.8); PLATELET COUNT 571 X10^3/uL (150.0-450.0); RED BLOOD COUNT 4.38 X10^6/uL (3.5-5.4); RED CELL DISTRIBUTION WIDTH 16.7 % (11.6-16.5); WHITE BLOOD COUNT 8.4 X10^3/uL (3.6-10.0)
[2020-03-07 05:38] LABS: ALANINE AMINOTRANSFERASE 16 Units/L (12-78); ALBUMIN 2.5 g/dL (3.4-5.0); ALKALINE PHOSPHATASE 92 Units/L (46-116); ASPARTATE AMINO TRANSFERASE 18 Units/L (15-37); BLOOD UREA NITROGEN 20 mg/dL (7-18); CALCIUM 8.8 mg/dL (8.5-10.1); CARBON DIOXIDE 27.9 mmol/L (21-32); CHLORIDE 99 mmol/L (98-107); COR NA(FOR HYPERGLY) 135 mmol/L (136-145); CREATININE 0.77 mg/dL (0.55-1.02); SODIUM 133 mmol/L (136-145); TOTAL PROTEIN 6.5 g/dL (6.4-8.2); eGFR NON BLACK RACES > 60 (>60)
[2020-03-07 06:37] LABS: HYPOCHROMASIA 1+; PLATELET MORPHOLOGY COMMENT NORMAL (NORMAL)
[2020-03-07 06:38] LABS: ANISOCYTOSIS SLIGHT; MICROCYTOSIS 1+
[2020-03-07] MEDS: ACTOS PO SCH (08:28)
[2020-03-07] MEDS: ASPIRIN 81 MG CHEWTAB PO SCH (08:30)
[2020-03-07] MEDS: GLUCOPHAGE XR 24-HR PO SCH (08:31)
[2020-03-07] MEDS: K-DUR TAB 20 MEQ PO SCH (08:31)
[2020-03-07] MEDS: NORVASC TAB 10 MG PO SCH (08:32)
[2020-03-07] MEDS: PROTONIX TAB 40 MG PO SCH (08:33)
[2020-03-07] MEDS: ZINC SULFATE PO SCH (08:33)
[2020-03-07] MEDS: VIBRAMYCIN PO SCH (08:33)
[2020-03-07] MEDS: LOVENOX INJ 30 MG SYR SC SCH (08:34)
[2020-03-07] MEDS: VITAMIN A PO SCH (08:36)
[2020-03-07] MEDS: VITAMIN D3 25 mcg (1,000 UNITS) PO SCH (08:36)
[2020-03-07 14:28] VITALS: BP 130/94
== END 2020-03-07 14:15 | disposition home health service (06) | DRG 177 ==
LOC: ER 16:35 → ICU 19:39
PROVIDERS: ADMIT Obstetrics & Gynecology Obstetrics; ATTEND Obstetrics & Gynecology Obstetrics
DX: J12.89 Other viral pneumonia; I10 Essential (primary) hypertension; K59.09 Other constipation; E11.65 Type 2 diabetes mellitus with hyperglycemia; U07.1 COVID-19; R10.84 Generalized abdominal pain; R06.03 Acute respiratory distress
CPT/HCPCS: 36415; 36600; 71010; 71045; 80053; 81001; 82550; 82553; 82803; 82947; 83735; 83880; 84300; 84484; 85025; 87040; 87400; 87635; 87651; 87804; 93005; 94640; 96365; 96367; 96374; 99285; A4216; A4222; J0696; J1650; J1815; J3411; J7030; J7050; J7120; J8540